=== PATIENT | male | born 1950 | race Caucasian/White ===

== ENCOUNTER 2019-01-14 04:40 | Emergency (ER) | payer BC ==
[~2019-01-14] VITALS: Ht 177.8 cm; Wt 90.7 kg
[2019-01-14 04:40] VITALS: BP 150/88
--- NOTE | 2019-01-14 04:45 | NUR ---
ARRIVAL: 68 YEAR OLD MALE AMBULATES INTO ER C/O NOSEBLEED FOR 2 DAYS. LARGE AMOUNT OF TUESDAY MORNING,TUESDAY AFTERNOON MODERATE AMOUNT, THIS AM LARGE AMOUNT.
--- NOTE | 2019-01-14 04:55 | NUR ---
UPDATE: DR SYED AT BEDSIDE WITH NASAL SPRAY.
[2019-01-14] MEDS ORDERED: AFRIN- Non-Preferred NS ONE (04:59)
[2019-01-14 05:00] VITALS: BP 155/92
[2019-01-14 05:01] VITALS: BP 155/92
[2019-01-14 05:30] VITALS: BP 127/55
--- NOTE | 2019-01-14 05:30 | ER.PDOC ---
General Chief Complaint: Nosebleed Stated Complaint: NOSEBLEED Time seen by MD: 05:11 Source: patient Exam Limitations: no limitations History of Present Illness Initial Comments Nosebleed Timing/Duration: abrupt Location: bilateral Severity: moderate Prior symptoms/Treatment: Similar symptoms previous Allergies: Coded Allergies: No Known Allergies (Unverified , 01/14/19) Constitutional: no symptoms reported Nose: see HPI Throat: no symptoms reported Respiratory: no symptoms reported Cardiovascular: no symptoms reported Gastrointestinal: no symptoms reported Musculoskeletal: no symptoms reported All Other Systems: Reviewed and Negative Past Medical History Medical History: no pertinent history Surgical History: knee, shoulder LMP (females 10-50): N/A Not applicalbe Social History Smoking: non-smoker Alcohol Use: heavy Drug Use: none Physical Exam General Appearance: alert, no distress Nose: active bleeding (R), active bleeding (L), moderate bleeding Head/Neck: atraumatic, thyroid nml Eyes/Ears: eyes nml inspection, PERRL, no nystagmus, TM nml Mouth: lips, gums nml, pharynx nml NEURO/PSYCH: oriented X3, mood/effect nml Respiratory: no resp. distress CVS: reg. rate & rhythm, heart sounds nml Abdomen: non-tender, no organomegaly Skin Exam: Normal Color, Warm/Dry Nasal Packing Nasal Packing : Clots Cleared From Nasal: by pt blowing Nasal Drops Instilled: Afrin External Pressure/Pinched(min): 15 Results/Orders Results/Orders Orders - YAHAIRA FRIAS MD Oxymetazoline Hcl (Afrin- Non-Preferred) (01/14/19 04:59) Vital Signs Date Time Temp Pulse Resp B/P (MAP) Pulse Ox O2 Delivery O2 Flow Rate FiO2 01/14/19 05:01 97.6 66 16 01/14/19 05:00 97.6 66 16 155/92 (113) 95 Room Air 01/14/19 04:40 97.6 68 16 150/88 (108) 95 Room Air 01/14/19 04:40 97.6 66 16 95 Room Air Departure Time of Disposition: 05:27 Disposition: 01 HOME, SELF-CARE Impression: Primary Impression: Epistaxis Condition: Improved Referrals: PCP,UNKNOWN (PCP) PRIMARY CARE PROVIDER Additional Instructions: F/U with your PCP in 2-3 days Duration or Time Spent with Pa: 30 mins YAHAIRA FRIAS MD Jan 14, 2019 05:30
== END 2019-01-14 05:30 | disposition home or self-care (01) ==
LOC: ER 04:40
DX: R04.0 Epistaxis (principal)
CPT/HCPCS: 99281; 99282